=== PATIENT | female | born 1960 | race Caucasian/White ===

== ENCOUNTER 2020-05-24 05:23 | Day surgery (SDC) | payer BC ==
[2020-05-17 14:23] LABS: CLARITY,URINE SLIGHTLY CLOUDY (Clear); COLOR,URINE YELLOW (Yellow); GLUCOSE, URINE NEGATIVE (Neg); KETONES,URINE NEGATIVE (Neg); LEUKOCYTE ESTERASE ,URINE TRACE (Neg); NITRITES, URINE NEGATIVE (Neg); OCCULT BLOOD,URINE NEGATIVE (Neg); PROTEIN,URINE NEGATIVE (Neg); UROBILINOGEN,URINE 0.2 E.U/dL (0.2-1.0)
[2020-05-17 14:24] LABS: BASOPHILS # (AUTO) 0.1 X10'3 (0-0.2); BASOPHILS % (AUTO) 0.9 % (0-1); EOSINOPHILS # (AUTO) 0.3 X10'3 (0-0.9); EOSINOPHILS % (AUTO) 2.5 % (0-6); LYMPHOCYTES # (AUTO) 3.3 X10'3 (1.1-4.8); LYMPHOCYTES % (AUTO) 28.5 % (21-51); MEAN CORPUSCULAR HGB CONC 33.5 g/dL (33.0-36.5); MEAN CORPUSCULAR VOLUME 95.5 FL (78-98); MEAN PLATELET VOLUME 9.7 FL (7.4-10.4); MONOCYTES # (AUTO) 0.6 X10'3 (0-0.9); MONOCYTES % (AUTO) 5.4 % (2-12); NEUTROPHILS # (AUTO) 7.2 X10'3 (1.8-7.7); NEUTROPHILS % (AUTO) 62.7 % (42-75); PRE OP HEMATOCRIT 40.3 % (35.0-45.0); PRE OP HEMOGLOBIN 13.5 g/dL (12.0-16.0); PRE OP PLATELET COUNT 375 X10'3 (140-440); RED BLOOD COUNT 4.22 X10'6 (4.20-5.60)
[2020-05-17 14:32] LABS: UA COLLECTION TYPE NON-SPECIFIED
[2020-05-17 14:34] LABS: BACTERIA,URINE 1+ /HPF (Neg); MUCUS STRANDS FEW /LPF (Neg); RBC,URINE NONE SEEN /HPF (0-2); SQUAMOUS EPITHELIAL CELL,UR MODERATE /LPF (FEW); WBC,URINE 0-4 /HPF (0-4)
[2020-05-17 14:37] LABS: ALBUMIN/GLOBULIN RATIO 1.1 (1.1-1.5); ALKALINE PHOSPHATASE 125 IU/L (46-116); BLOOD UREA NITROGEN 12 MG/DL (7-18); BUN/CREATININE RATIO 11.1 (6.6-38.0); CALCIUM 9.3 MG/DL (8.5-10.1); CHLORIDE 103 MMOL/L (99-107); CREATININE 1.08 MG/DL (0.40-0.90); PRE OP ALT 33 U/L (30-65); PRE OP ANION GAP 6 (8-16); PRE OP AST 27 U/L (10-37); PRE OP BILIRUB, TOTAL 0.3 MG/DL (0.0-1.0); PRE OP GLUCOSE 83 MG/DL (70-104); PRE OP SODIUM 140 MMOL/L (135-145); TOTAL CARBON DIOXIDE 31.5 MMOL/L (24-32); TOTAL PROTEIN 7.8 G/DL (6.4-8.2); eGFR 52 ML/MIN
[2020-05-17 14:41] LABS: PRE OP POTASSIUM 3.6 MMOL/L (3.4-5.1)
[~2020-05-24] VITALS: Ht 160 cm; Wt 113.0 kg
[2020-05-24] VITALS (11 sets, daily range): BP systolic 108–148; BP diastolic 70–91
[~2020-05-24 05:23] MED LIST: BUPR150T8 PO; DILT300C53 PO; HCTZ25T PO; LEVO125T8 PO; PRAM0.252 CORPAK; SERT50TA PO; TRAM50TA2 PO; ZOLP5TAB8 PO; ringers solution, lacted 1,000 ML IV SCH
[2020-05-24] MEDS ORDERED: famotidine 20mg tablet PO ONE (05:30)
[2020-05-24] MEDS ORDERED: cefazolin/dext.iso 2gm/50ml 50 ML IV ONE (05:30)
[2020-05-24] MEDS ORDERED: scopolamine 1.5mg patch.TD72 TD ONE (06:55)
[2020-05-24] MEDS ORDERED: fentaNYL /PF 50mcg/ml 5ml ampule ONE (06:56)
[2020-05-24] MEDS ORDERED: MIDAZolam 1mg/ml 10ml vial ONE (06:56)
[2020-05-24] MEDS ORDERED: ondansetron/PF 4mg/2ml inj ONE (06:57)
[2020-05-24] MEDS ORDERED: sevoflurane 250ml liquid IH ONE (06:57)
[2020-05-24] MEDS ORDERED: bacitracin 15gm ointment TP ONE (07:03)
[2020-05-24] MEDS ORDERED: ROPIVAcaine 0.5% (5mg/ml) 30ml vial ONE ×2 (07:20)
[2020-05-24] MEDS ORDERED: propofol inj 20 ML IV ONE (07:21)
[2020-05-24] MEDS ORDERED: LIDOcaine 2% (20mg/ml) 5ml vial ONE (07:21)
[2020-05-24] MEDS ORDERED: dexamethasone sod phosphate 4mg/ml inj. ONE (07:21)
[2020-05-24] MEDS ORDERED: morphine 2 MG/ML inj. syringe IV PRN (07:50)
[2020-05-24] MEDS ORDERED: fentaNYL/PF 50MCG/1 ML 2ML syringe IV PRN (07:50)
[2020-05-24] MEDS ORDERED: labetalol 20mg/4ml (5mg/ml) syringe IV PRN (07:50)
[2020-05-24] MEDS ORDERED: hydrALAZINE 20mg/ml inj. IV PRN (07:50)
[2020-05-24] MEDS ORDERED: morphine 4 MG/ML inj SYRINge IV PRN (07:50)
[2020-05-24] MEDS ORDERED: ondansetron/PF 4mg/2ml inj IV PRN (07:50)
[2020-05-24] MEDS ORDERED: ringers solution, lacted 1,000 ML IV SCH (07:50)
--- NOTE | 2020-05-24 08:45 | NUR ---
ADMITTED TO PACU FROM OR ACCOMPANIED BY ANESTHESIA. INTIAL PHYSICAL ASSESSMENT DONE AND RECORDED. REPORT RECEIVED FROM ANESTHESIA.
[2020-05-24] MEDS: fentaNYL/PF 50MCG/1 ML 2ML syringe IV PRN ×2 (09:05→09:38)
--- NOTE | 2020-05-24 10:30 | NUR ---
mEDICATED X2 FOR C/O PAIN IN PACU WITH GOOD RESULTS. DISCHARGE CRITERIA MET, DISCHARGE INSTRUCTIONS GIVEN, DEMONSTRATES VERBAL UNDERSTANDING. DISCHARGED HOME IN GOOD CONDITION.
== END 2020-05-24 10:30 | disposition home or self-care (01) ==
LOC: PAS 05:23
PROVIDERS: ATTEND Podiatrist Foot & Ankle Surgery
DX: M19.072 Primary osteoarthritis, left ankle and foot (principal); M20.22 Hallux rigidus, left foot; G89.18 Other acute postprocedural pain; I10 Essential (primary) hypertension; G47.30 Sleep apnea, unspecified; F41.9 Anxiety disorder, unspecified; E66.01 Morbid (severe) obesity due to excess calories; Z68.41 Body mass index [BMI] 40.0-44.9, adult; Z90.710 Acquired absence of both cervix and uterus; Z98.890 Other specified postprocedural states; Z79.899 Other long term (current) drug therapy; Z96.662 Presence of left artificial ankle joint; Z72.89 Other problems related to lifestyle; Z20.828 Contact with and (suspected) exposure to other viral communicable diseases; Z83.3 Family history of diabetes mellitus
CPT/HCPCS: 28289; 28725; 36415; 64445; 64447; 73630; 76000; 76942; 80053; 81001; 82948; 85025; 87088; 87635; 93005; A6223; C1713; J1100; J2001; J2250; J2405; J2704; J3010; J7120; A4618; A6449; A7000; J2795